=== PATIENT | female | born 1975 | race Caucasian/White ===

== ENCOUNTER 2023-11-28 09:57 | Observation (INO) ==
[~2023-11-28 09:57] MED LIST: Metoclopramide 5 MG/ML VIAL (10 mg) IV PRN; NS 0.45% 1000 ml BAG 1,000 ML IV SCH; Naloxone 0.4 mg VIAL 0.4 mg/ml 1 ml VIAL IV PRN; Ondansetron 4 mg VIAL 2 MG/ML 2 ml VIAL IV PRN; fentaNYL 100 mcg/2 ml 50 MCG/ML VIAL IV PRN
[2023-11-28] MEDS ORDERED: fentaNYL 100 mcg/2 ml 50 MCG/ML VIAL ONE (10:21)
[2023-11-28] MEDS ORDERED: Midazolam 2 mg/2 ml VIAL 1 mg/ml 2 ml VIAL (2 mg) ONE ×2 (10:21→11:41)
[2023-11-28] MEDS ORDERED: Tranexamic Acid 1 GM/100ML BAG 2,000 MG/200 ML BAG IV ONE (10:36)
[2023-11-28] MEDS ORDERED: ceFAZolin 2 GM PREMIX 2 GM/50 ML BAG ONE (10:36)
[2023-11-28 10:46] LABS: Rapid COVID-19 Molecular Undetected (Undetected)
[2023-11-28] MEDS ORDERED: Dexamethasone IV 4 MG/ML VIAL 1 ml VIAL ONE (11:12)
[2023-11-28] MEDS ORDERED: ROPIVACAINE 5 MG/ML 30 ML BTL (0.5%) ONE ×2 (11:13→11:36)
[2023-11-28] MEDS ORDERED: Rocuronium 50 mg VIAL 10 mg/ml 5 ml VIAL (50 mg) ONE (12:35)
[2023-11-28] MEDS ORDERED: Buffered Lidocaine 1% SYRIN 1 ml ONE (13:26)
[2023-11-28] MEDS ORDERED: Ondansetron 4 mg VIAL 2 MG/ML 2 ml VIAL ONE (14:05)
[2023-11-28] MEDS ORDERED: Magnesium Hydroxide LIQ 30 ML UDC PO PRN (14:47)
[2023-11-28] MEDS ORDERED: Calcium Carb (TUMS) 500 mg CHEW TAB PO PRN (14:47)
[2023-11-28] MEDS ORDERED: Lactulose 30 ml UDC PO PRN (14:47)
[2023-11-28] MEDS ORDERED: Ondansetron ODT 4 mg TAB 4 MG TAB PO PRN (14:47)
[2023-11-28] MEDS ORDERED: Ondansetron 4 mg VIAL 2 MG/ML 2 ml VIAL IV PRN (14:47)
[2023-11-28] MEDS: Lactated Ringers 1000 ml BAG 1,000 ML IV SCH ×2 (16:03→19:56)
[2023-11-28] MEDS: Morphine 2 MG/ML SYRINGE IV PRN (16:39)
[2023-11-28] MEDS: Scopolamine 1 mg/72hr PATCH TRANSDERM ONE (19:55)
[2023-11-28] MEDS: Acetaminophen IV 1 GM/100ML 1,000 MG/100 ML BAG IV ONE (19:58)
[2023-11-28] MEDS: Buffered Lidocaine 1% SYRIN 1 ml INTRADERM ONE (19:59)
[2023-11-28] MEDS: Magnesium Hydroxide LIQ 30 ML UDC PO SCH (20:11)
[2023-11-28] MEDS: ceFAZolin 2 GM in NS PREMIX 2 GM/100 ML BAG IVPB SCH (20:42)
[2023-11-29 08:23] LABS: Hematocrit 31.8 % (35-45); Hemoglobin 10.7 g/dL (11.5-14.3); Mean Platelet Volume 10.1 fL (7.5-11.2); Platelet Count 140 10^3/uL (150-450)
[2023-11-29] MEDS: Vitamin THERAPEUTIC TAB PO SCH (09:02)
[2023-11-29 09:34] LABS: Calcium 7.6 mg/dL (8.6-10.3); Creatinine, Serum 0.82 mg/dL (0.51-0.95); Potassium 3.7 mmol/L (3.5-5.0); eGFR CKD-EPI 89.3 (>60)
[2023-11-29 10:20] VITALS: BP 118/70
== END 2023-11-29 13:15 | disposition home or self-care (01) ==
LOC: INTOOBSV 09:57 → AA 09:57 → SSU 14:47
PROVIDERS: ADMIT Orthopaedic Surgery Adult Reconstructive Orthopaedic Surgery; ATTEND Orthopaedic Surgery Adult Reconstructive Orthopaedic Surgery